=== PATIENT | female | born 2000 | race Hispanic/Latino ===

== ENCOUNTER 2022-01-19 04:12 | Emergency (ER) | payer BC ==
--- OUTSIDE RECORDS SUMMARY | 2022-01-19 04:16 | XMS REPORT | Continuity of Care Document ---
:2000 Author Organization [facility] t Address [address] [place] [address] Care Team Providers Name Role Phone Veronica Ku Primary Care Physician [phone] MIRI VAZQUEZ Attending Clinician Unavailable Doctor Unassigned, [place] Attending Clinician Unavailable SANDRINE HAY Attending Clinician Unavailable Sandrine Hay MD Attending Clinician VERONICA COBIAN Attending Clinician Unavailable Payers Payer Name Policy Type Policy Number Effective Date Expiration Date S coral [facility] - [id number] 2018 00:00:00 OUT OF STATE [facility] [id number] 2020 00:00:00 Problems Condition Condition Condition Status Onset Resolution Last Treating Co mments Source Name Details Category Date Date Treatment Clinician Date Encounter Encounter Disease Active Uni vers for for 7-14 ity of initial initial 00:00: [place] prescripti prescripti 00 Me dical on of on of Branch injectable injectable contracept contracept praneeth praneeth Class 1 Class 1 Disease Active Univers obesity obesity 7-14 ity of due to due to 00:00: [place] excess excess 00 Medical calories calories Branch with body with body mass index mass index (BMI) of (BMI) of 30.0 to 30.0 to 30.9 in 30.9 in adult, adult, unspecifie unspecifie d whether d whether serious serious comorbidit comorbidit y present y present Well woman Well woman Disease Active U nivers exam exam - ity of 00:00: [address] Laceration Laceration Disease Active U nivers , , 09-25 [place] obstetric[place], first 00 Medica l degree degree Branch Anemia of Anemia of Disease Active Uni vers mother in mother in 09-25 [place] , , [place]ical condition condition Bran ch Maternal Maternal Disease Active Unive rs varicella, varicella, 09-25 [place] of non-immune [place] [address] [place] [address] BMI BMI Disease Active Univers 30.0-30.9, 30.0-30.9, 5-31 it y of adult adult 00:00: [address] History of History of Disease Active U nivers herpes herpes 5-11 ity of genitalis genitalis 00[place] Allergies, Adverse Reactions, Alerts Allergy Allergy Status Severity Reaction(s) Onset Inactive Treating Comm ents Source Name Type Date Date Clinician NO KNOWN Drug Active Univers ALLERGIE Class ity of [facility] Social History Social Habit Start Date Stop Date Quantity Comments Source Exposure to Not sure [facility] SARS-CoV-2 [facility] [place] [facility] (event) [facility] Alcohol intake 2020-11-07 2020-11-07 Ex-drinker [facility] 00:00:00 00:00:00 (finding) [facility] Tobacco use and 2020-04-24 2020-04-24 Never used Universit y of exposure 00:00:00 00:00:00 [facility] Sex Assigned At 2000 2000 Universit y of 00:00:00 00:00:00 [facility] Smoking Status Start Date Stop Date Source Never smoker [facility] Medications Ordered Filled Start Stop Current Ordering Indication Dosage Frequency Signature Comments Components Source Medication Medication Date Date Medication? Clinician (SIG) Name Name ibuprofen No 800mg 800 mg, Uni vers (IBU) 4-17 04-17 Oral, ity of tablet 800 10:45: 09:38 ONCE, 1 [place] as mg 00 :00 dose, On Medical [place] 08/11/21 at 0545, YESIKA amoxicillin 2021- No 500mg 500 mg, U nivers (TRIMOX) 08-1117 Oral, ity of capsule 500 10:45: 09:38 [place] dose, On [place] 08/11/21 at 0545, YESIKA
Re ason for Anti-Infec tive: Documented Infection< br>Documen lorenzo Infection Site: HEENT
D uration of Therapy: Other (see Comments) amoxicillin Yes [id number] 500mg Take 1 Univers 500 mg 4-17 capsule by ity of capsule 00:00: mouth 3 [place] 00 (three) Medical times Branch daily. ibuprofen Yes [id number] 800mg Take 1 Univers 800 mg 4-17 tablet by ity of tablet 00:00: mouth [place] 00 every 8 Medical (eight) Branch hours as needed for Pain (scale 4-6) or Temp > 38.5 C. amoxicillin Yes [id number] 500mg Take 1 Univers 500 mg 4-17 capsule by ity of capsule 00:00: mouth 3 [place] 00 (three) Medical times Branch daily. ibuprofen Yes [id number] 800mg Take 1 Univers 800 mg 4-17 tablet by ity of tablet 00:00: mouth [place] 00 every 8 Medical (eight) Branch hours as needed for Pain (scale 4-6) or Temp > 38.5 C. medroxyPROG Yes [id number] 150mg Univers ESTERone 7-14 ity of (DEPO-PROVE 14:15: [place] RA) 00 Medical injection Branch 150 mg medroxyPROG Yes [id number] 150mg Univers ESTERone 7-14 ity of (DEPO-PROVE 14:15: [place] RA) 00 Medical injection Branch 150 mg ferrous Yes [id number] 325mg Take 1 Uni vers sulfate 325 6-02 tablet by ity of mg (65 mg 00:00: mouth 2 [place] iron) 00 (two) Medical tablet times Branch daily. docusate Yes [id number] 200mg Take 2 Un jeffrey 100 mg 6-02 capsules ity of capsule 00:00: by mouth [place] 00 once daily Medical as needed Branch for Constipati on. ibuprofen Yes [id number] 600mg Take 1 U nivers 600 mg 6-02 tablet by ity of tablet 00:00: mouth [place] 00 every 6 Medical (six) Branch hours as needed (Pain). Take with food or milk. Yes [id number] 1{tbl} Take 1 U nivers vitamin 6-02 tablet by ity of w/FA 00:00: mouth [place] (PRENATABS 00 daily. Medical RX) tablet Branch ferrous 0 Yes [id number] 325mg Take 1 Uni vers sulfate 325 6-02 tablet by ity of mg (65 mg 00:00: mouth 2 [place] iron) 00 (two) Medical tablet times Branch daily. docusate Yes [id number] 200mg Take 2 Un jeffrey 100 mg 6-02 capsules ity of capsule 00:00: by mouth [place] 00 once daily Medical as needed Branch for Constipati on. ibuprofen Yes [id number] 600mg Take 1 U nivers 600 mg 6-02 tablet by ity of tablet 00:00: mouth [place] 00 every 6 Medical (six) Branch hours as needed (Pain). Take with food or milk. Yes [id number] 1{tbl} Take 1 U nivers vitamin 6-02 tablet by ity of w/FA 00:00: mouth [place] (PRENATABS 00 daily. Medical RX) tablet Branch valACYclovi Yes [id number] 500mg Take 1 Univers r (VALTREX) 5-11 tablet by ity of 500 mg 00:00: mouth 2 [place] tablet 00 (two) Medical times Branch daily. valACYclovi Yes [id number] 500mg Take 1 Univers r (VALTREX) 5-11 tablet by ity of 500 mg 00:00: mouth 2 [place] tablet 00 (two) Medical times Branch daily. Immunizations Ordered Filled Immunization Date Status Comments [facility] Immunization Name Name HPV9 2020-10-29 Completed University of 00:00:00 [facility] HPV9 2020-10-29 Completed University of 00:00:00 [facility] HPV9 2020-09-25 Completed University of 00:00:00 [facility] HPV9 2020-09-25 Completed University of 00:00:00 [facility] TDAP 2020-07-10 Completed University 00:00:00 [facility] [place] [facility] Branch TDAP 2020-07-10 Completed [facility] 00:00:00 [facility] Vital Signs Vital Name Observation Time Observation Value Comments Source Systolic blood 2021-08-11 08:25:00 144 mm[Hg] Univer sity of pressure [facility] Diastolic blood 2021-08-11 08:25:00 99 mm[Hg] Unive rsity of pressure [facility] Heart rate 2021-08-11 08:25:00 71 /min [facility] Body temperature 2021-08-11 08:25:00 37.11 Lisa [facility] Respiratory rate 2021-08-11 08:25:00 18 /min [facility] Body height 2021-08-11 08:25:00 170.2 cm [facility] Body weight 2021-08-11 08:25:00 89.359 [facility] BMI 2021-08-11 08:25:00 30.85 kg/m2 [facility] Oxygen saturation in 2021-08-11 08:25:00 100 /min [facility] Arterial blood by [facility] Pulse oximetry Branch Procedures Procedure Date / Time Performed Performing Clinician [facility] slade ASSIGNMENT OF BENEFITS 2021-10-29 12:46:35 Doctor Unassigned, No [facility] Name Medical Branch NOTICE OF PRIVACY 2021-08-11 08:17:02 Doctor Unassigned, No [facility] Medical Branch CONSENT/REFUSAL FOR 2021-08-11 08:16:43 [facility], [facility] Branch TREATMENT CONSENT/REFUSAL FOR 2021-08-11 08:16:29 Doctor Unassigned, No Un [facility] DIAGNOSIS AND Name Medical Branch TREATMENT Encounters Start End Encounter Admission Attending Care Care Encounter Source Date/Time Date/Time Type Type Clinicians Facility Department ID 2021-02-24 Outpatient [facility] [id number] Univers 22:12:56 ity [facility] 2021-10-29 2021-10-29 Outpatient Rm VAZQUEZ, [facility] [id number] Univers 08:30:00 08:30:00 MIRI [id number] ity o [facility] 2021-10-29 2021-10-29 Outpatient R AKINSIPE, [facility] [id number] Univers 08:00:00 08:00:00 MIRI ity o [facility] 2021-10-29 2021-10-29 Orders Doctor JOSE [id number] Univers 00:00:00 00:00:00 Only Unassigned, SERGEI [id number] ity [facility] [id number] [facility] [id number] [facility] 009 Branch 2021-08-11 2021-08-11 Emergency X [facility] ERT [id number] Univers 03:27:00 04:57:00 SANDRINE [facility] 2021-08-11 2021-08-11 Emergency [facility] [id number] Univers 03:27:00 04:57:00 Sandrine DAWN [id number] ity [facility] [id number] [facility] [id number] [facility] 084 Branch 2021-05-09 2021-05-09 Outpatient R [facility] [id number] Univers 09:15:00 09:15:00 [id number] ity [facility] 2021-05-09 2021-05-09 Outpatient R [facility] [id number] Univers 09:15:00 09:15:00 ity [facility] 2021-01-30 2021-01-30 Outpatient R AKINSIPE, [facility] [id number] Univers 09:45:00 09:45:00 MIRI [id number] ity o [facility] 2021-01-30 2021-01-30 Outpatient R AKINSIPE, [facility] [id number] Univers 09:45:00 09:45:00 MIRI ity o [facility] 2020-11-07 2020-11-07 Outpatient R COBIAN, [facility] [id number] Univers 08:15:00 08:15:00 VERONICA [id number] ity o [facility] 2020-11-07 2020-11-07 Outpatient R ARANZA [facility] [id number] Univers 08:15:00 08:15:00 NIKNDA ity o [facility] 2020-10-29 2020-10-29 Outpatient R ARANZA [facility] [id number] Univers 09:30:00 09:30:00 NIKNDA ity o [facility] 2020-10-15 2020-10-15 Outpatient R AKINSIPE, [facility] [id number] Univers 11:00:00 11:00:00 MIRI [facility] 2020-09-19 2020-09-19 Outpatient R ARANZA [facility] [id number] Univers 09:45:00 09:45:00 NIKNDA [id number] ity o [facility] 2020-09-19 2020-09-19 Outpatient R ARANZA [facility] [id number] Univers 09:45:00 09:45:00 NIKNDA itmoshe o [facility] 2020-09-12 2020-09-12 Outpatient R ARANZA [facility] [id number] Univers 15:45:00 15:45:00 ROSHUNDA [id number] y o [facility] 2020-09-12 2020-09-12 Outpatient R ARANZA [facility] [id number] Univers 15:45:00 15:45:00 AFTABDALENDA ity o [facility] 2020-09-11 2020-09-11 Outpatient R ARANZA [facility] [id number] Univers 15:15:00 15:15:00 ROSHUNDA [id number] ity o [facility] 2020-09-11 2020-09-11 Outpatient R ARANZA [facility] [id number] Univers 15:15:00 15:15:00 ROSHUNDA ity o [facility] 2020-09-04 2020-09-04 Outpatient R ARANZA [facility] [id number] Univers 12:45:00 12:45:00 ROSHUNDA [id number] [facility] 2020-09-04 2020-09-04 Outpatient R ARANZA [facility] [id number] Univers 12:45:00 12:45:00 ROSHUNDA [facility] 2020-08-21 2020-08-21 Outpatient R ARANZA [facility] [id number] Univers 12:45:00 12:45:00 ROSHUNDA [id number] [facility] 2020-08-21 2020-08-21 Outpatient Rm COBIAN [facility] [id number] Univers 12:45:00 12:45:00 ROSHUNDA [facility] 2020-08-07 2020-08-07 Outpatient R ARANZA [facility] [id number] Univers 11:00:00 11:00:00 ROSHUNDA [id number] mos[facility] o [facility] 2020-08-07 2020-08-07 Outpatient Rm COBIAN [facility] [id number] Univers 11:00:00 11:00:00 ROSNDA [facility] 2020-07-24 2020-07-24 Outpatient R ARANZA [facility] [id number] Univers 10:30:00 10:30:00 ROSHUNDA [id number] [facility] 2020-07-24 2020-07-24 Outpatient Rm COBIAN [facility] [id number] Univers 10:30:00 10:30:00 ROSHUNDA [facility] 2020-07-10 2020-07-10 Outpatient R ARANZA [facility] [id number] Univers 10:30:00 10:30:00 ROSHUNDA [id number] [facility] 2020-07-10 2020-07-10 Outpatient R ARANZA [facility] [id number] Univers 10:30:00 10:30:00 ROSHUNDA [facility] 2020-06-19 2020-06-19 Outpatient R ARANZA [facility] [id number] Univers 11:00:00 11:00:00 ROSHUNDA [id number] [facility] 2020-06-19 2020-06-19 Outpatient R ARANZA [facility] [id number] Univers 11:00:00 11:00:00 ROSDALENDA ity o f [facility] 2020-05-23 2020-05-23 Outpatient R [facility] [id number] Univers 10:30:00 10:30:00 [id number] [facility] 2020-05-23 2020-05-23 Outpatient P [facility] [id number] Univers 10:30:00 10:30:00 [facility] 2020-05-22 2020-05-22 Outpatient R ARANZA [facility] [id number] Univers 11:00:00 11:00:00 NIKNDA [id number] ity o f [facility] 2020-05-22 2020-05-22 Outpatient R ARANZA [facility] [id number] Univers 11:00:00 11:00:00 NIKNDA ity o f [facility] 2020-04-25 2020-04-25 Outpatient R [facility] [id number] Univers 08:30:00 08:30:00 [id number] [facility] 2020-04-25 2020-04-25 Outpatient R ARANZA [facility] [id number] Univers 08:30:00 08:30:00 NIKNDA ity o f [facility] 2020-04-24 2020-04-24 Outpatient R ARANZA [facility] [id number] Univers 13:15:00 13:15:00 NIKNDA ity o [facility] Results This patient has no known results.
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
--- NOTE | 2022-01-19 06:42 | ER ---
Nurse's Notes [facility] Name: Janae Moore Age: 21 yrs Sex: Female : 2000 Arrival Date: 01/19/2022 Time: 04:15 Bed 15 Private MD: Diagnosis: Alcohol use, unspecified with intoxication;Possible drug use Presentation: 01/19 04:16 Chief complaint: EMS states: pt was found with her friend in the [employer] bathroom. pt was kd3 unconscious when EMS arrived but came around in route. pt vitals stable and is now a\T\o times 3 with a GCS of 15. Coronavirus screen: Vaccine status: Patient reports being unvaccinated. Ebola Screen: No symptoms or risks identified at this time. Initial Sepsis Screen: Does the patient meet any 2 criteria? No. Patient's initial sepsis screen is negative. Does the patient have a suspected source of infection? No. Patient's initial sepsis screen is negative. Risk Assessment: Do you want to hurt yourself or someone else? Patient reports no desire to harm self or others. Onset of symptoms was January 19, 2022. 04:16 Method Of Arrival: EMS: [facility] kd3 04:16 Acuity: AMY 3 kd3 Triage Assessment: 04:18 General: Appears uncomfortable, Behavior is calm, cooperative. Pain: Denies pain. 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 - Social history:: Smoking status: unknown. Screenin:19 Abuse screen: Denies threats or abuse. Denies injuries from another. Nutritional kd3 screening: No deficits noted. Tuberculosis screening: No symptoms or risk factors identified. Fall Risk Gait- Impaired (20 pts.). Mental Status- Overestimates/Forgets Limitations (15 pts.). Assessment: 04:29 Neuro: Level of Consciousness is awake, alert, Oriented to person, place, time, with ke1 fiance at bedside. Vital Signs: 04:16 BP 104 / 84; Pulse 82; Resp 17; Temp 98.1(O); Pulse Ox 100% on R/A; Weight 95.25 kg; kd3 Height 5 ft. 7 in. (170.18 cm); Pain 0/10; 04:22 BP 113 / 61; Pulse 79; Resp 15; Pulse Ox 97% on R/A; ke1 04:48 BP 109 / 70; Pulse 97; Resp 20; Pulse Ox 98% on R/A; ke1 06:46 BP 101 / 60; Pulse 86; Resp 17; Pulse Ox 98% on R/A; Pain 0/10; ke1 04:16 Body Mass Index 32.89 (95.25 kg, 170.18 cm) kd3 ED Course: 04:15 Patient arrived in ED. kd3 04:17 Raven Hunter MD is Attending Physician. sd2 04:18 Triage completed. kd3 04:18 Arm band placed on right wrist. kd3 04:19 Patient has correct armband on for positive identification. Call light in reach. Side kd3 rails up X2. 04:20 Maintain EMS IV. Dressing intact. Good blood return noted. Site clean \T\ dry. Gauge \T\ kd 3 site: 20 G R A/C. 04:21 Emmanuel Vital, RN is Primary Nurse. ke1 06:47 No provider procedures requiring assistance completed. ke1 06:53 IV discontinued. ke1 Administered Medications: No medications were administered Medication: 04:19 VIS not applicable for this client. kd3 Outcome: 06:41 Discharge ordered by . sd2 06:52 Discharged to home via wheelchair, with fiance ke1 06:52 Condition: good 06:52 Discharge instructions given to patient. 06:53 Patient left the ED. ke1 Signatures: Elizabeth Betts RN RN kd3 Emmanuel Vital, ALICJA RN ke1 Raven Hunter MD MD sd2
[2022-01-20 16:27] VITALS: TEMP 98.1
[2022-01-20 16:41] VITALS: O2SAT 98
[2022-01-20 17:00] VITALS: BP 101/60
== END 2022-01-19 06:53 | disposition home or self-care (01) ==
LOC: ER 04:12
DX: F10.929 Alcohol use, unspecified with intoxication, unspecified (principal)
CPT/HCPCS: 99283